=== PATIENT | female | born 1995 | race Caucasian/White ===

== ENCOUNTER 2016-09-26 04:32 | Emergency (ER) | payer OTHER ==
--- NOTE | 2016-09-26 06:02 | ED ORDER SUMMARY ---
..... Patient: RORY CACERES OrderSheet [facility] VisitID: [id number] [place] [address] 21y, F Registration Date/Time: 09/26/2016 ORDER SHEET Weight: 118.3 kg (stated) Allergies: Unknown GENERAL ORDERS: UA-Culture if indicated Urgent (05:04 09/26/2016 Juan Mario) (Ack 5:13 RKaruga) (5:23 CBradburn R.N.) Urine Urgent (05:04 09/26/2016 Juan Mario) (Ack 5:13 RKaruga) (5:23 CBradburn R.N.) MEDICATION ORDERS: Toradol IM 60 mg (NOW) (05:04 09/26/2016 Juan Mario) (Ack 5:25 CBradburn R.N.) (5:42 CBradburn R.N.) Zofran ODT PO 4 mg (NOW) (05:05 09/26/2016 Juan Mario) (Ack 5:25 CBradburn R.N.) (5:44 CBradburn R.N.) IV FLUIDS: ORDER SHEET NOTES: [Electronically signed by Mallory Hirsch R.N. (06:16 09/26/2016)] [Electronically signed by Bull Ramos Dr. (06:23 09/29/2016)] [Electronically locked/signed by Mallory Hirsch R.N. (06:16 09/26/2016)]
--- NOTE | 2016-09-26 06:02 | ED CLINICAL REPORT ---
Clinical Report - Physicians/Mid Levels [facility] [address] [address] 09/26/2016 4:34 Patient: RORY CACERES Time Seen: 0455; initial patient contact. Arrived- By private vehicle. Historian- patient. HISTORY OF PRESENT ILLNESS Chief Complaint: BACK PAIN. Onset- few months ago; worse over the past 2 days and it is still present. It was abrupt in onset and has been intermittent but is not gone now. It is described as being moderate in degree. The quality is noted to be sharp and aching. No bladder dysfunction, bowel dysfunction, sensory loss or motor loss. Additional history - no saddle anesthesia. No urinary retention. No history of IV drug use or fever. Patient notes an injury but denies injury to the head or neck. Mechanism of injury- she was lifting. Occurred at work. No other injury. Similar symptoms previously: Recent medical care: Not recently seen/assessed. REVIEW OF SYSTEMS No fever, difficulty with urination, hematuria, vaginal discharge or difficulty breathing. No chest pain, abdominal pain, nausea or vomiting. All systems otherwise negative, except as recorded above. PAST HISTORY See nurses notes. SOCIAL HISTORY Never smoker. No alcohol use or drug use. No recent travel. Is a local resident. works at a daycare center. ADDITIONAL NOTES The nursing notes have been reviewed. PHYSICAL EXAM Vital Signs: 09/26/2016 04:44 BP: 119/74. HR: 107. RR: 18. O2 saturation: 97%. Temp: 98.1 F. Pain level now: 7/10. Blood pressure normal. Oxygen saturation normal. Appearance: Alert. No acute distress. (nontoxic in appearance. Pleasant. Cooperative. Well-developed well-nourished). HEENT: Normal external inspection. Eyes: Pupils equal, round and reactive to light. ENT: Ears normal. Pharynx normal. Neck: Normal inspection. Neck nontender. Painless ROM. CVS: Heart sounds normal. Pulses normal. Respiratory: No respiratory distress. Breath sounds normal. Abdomen: No visible injury. Soft and nontender. Bowel sounds normal. Back: Normal inspection. No tenderness. No muscle spasm in the back, vertebral point tenderness or soft tissue tenderness. (no overlying skin changes. No crepitus. No bony abnormalities.). Skin: Skin warm and dry. Normal skin color. No rash. Normal skin turgor. Extremities: Extremities exhibit normal ROM. Extremities nontender. Neuro: Oriented X 3. Mood/affect normal. LABS, X-RAYS, AND EKG Laboratory Tests: UA-Culture if indicated: (JUAN DIEGO: 09/26/2016 05:19) ( [facility] 09/26/2016 05:40) Final results Test Result Flag Units (Reference) URINE COLOR YELLOW URINE APPEARANCE SL CLOUDY URINE GLUCOSE NEGATIVE (NEGATIVE) URINE BILIRUBIN NEGATIVE (NEGATIVE) URINE KETONE NEGATIVE (NEGATIVE) URINE SPECIFIC GRAVITY 1.020 (1.010-1.030) URINE PH 6.0 (5.0-8.0) URINE PROTEIN NEGATIVE (NEGATIVE) URINE UROBILINOGEN 0.2 EU/dL (0.2-1.0) URINE NITRITE NEGATIVE (NEGATIVE) URINE BLOOD 2+ (NEGATIVE) URINE LEUK ESTERASE NEGATIVE (NEGATIVE) URINE RBC 3-5 rbc/hpf (0-1) URINE WBC 3-5 wbc/hpf (0-1) URINE EPITHELIAL CELLS 5-10 EPI/hpf (0-5) URINE BACTERIA FEW (1+) (NONE SEEN) URINE COMMENT CULT NOT INDICATED 2+ MUCOUSURINE CULTURES ARE SET-UP BASED ON THE FOLLOWING CRITERIA:POSITIVE NITRITEPOSITIVE LEUKOCYTE ESTERASEGREATER THAN 10 WHITE BLOOD CELLSMODERATE (2+) OR GREATER BACTERIA Urine: (JUAN DIEGO: 09/26/2016 05:19) ( [facility] 09/26/2016 05:29) Final results Test Result Flag Units (Reference) URINE NEGATIVE . PROGRESS AND PROCEDURES Course of Care: The patient is a 21-year-old female presenting for nausea and lower back pain. patient with history of prior back injury in May. Patient likely with exacerbation of her prior back injury. Patient artery with radiographs of the back from her primary care doctor's office. Patient has tried physical therapy without success. No signs of cord compromise at this time. Patient without other red flags for back pain. Patient will be managed conservatively at this time with nonsteroidal anti-inflammatories. urine sample also taken for possible urinary tract etiology for the patient's discomfort. Patient is agreeable to the treatment plan. atient with improved symptoms while here in the emergency department. UA and tests are negative. Had discussion with patient in regards to her workup here in emergency department including Diagnosis, home care, follow-up, and return precautions. All questions have been answered. The patient expressed understanding of these instructions and was agreeable to them. At this time we'll all 4 conservative management with medications. Patient will be instructed to follow-up with her primary care DrLanette for furthermanagement and workup for her back pain if it continues. CLINICAL IMPRESSION Acute nontraumatic lumbar back pain. INSTRUCTIONS Off work today, tomorrow. Warnings: GENERAL WARNINGS: Return or contact your physician immediately if your condition worsens or changes unexpectedly, if not improving as expected, or if other problems arise. SPECIFICALLY, return if you develop weakness, numbness, tingling, pain or incontinence. Your Current Medications: CONTINUE TAKING THE FOLLOWING MEDICATIONS: Depo-Provera Intramuscular : every 3months. Flovent HFA Inhalation : 44 mcg PRN, prn. MetFORMIN HCl Oral : Tablet 1000 mg, 1 tablet daily. Singulair Oral : prn. Ventolin HFA Inhalation : 2 puffs, prn. Prescription Medications: Flexeril 10 mg: take 1 orally every 8 hours as needed for muscle spasm or pain. Dispense thirty (30). No refills. Substitution is permissible. Follow-up: Return to the emergency department as needed. Follow up with your doctor in three days. Reason for referral: recheck today's concerns. Summary of care provided to patient via paper. Screening today revealed the patient's blood pressure to be in the normal range. The patient should follow up with a primary care provider for blood pressure management. Understanding of the discharge instructions verbalized by patient. (Electronically signed by Bull Ramos Dr. 09/29/2016 6:23)
--- NOTE | 2016-09-26 06:02 | ED NURSING NOTES ---
Clinical Report - Nurses [facility] [address] [place] [address] 09/26/2016 4:34 Patient: RORY CACERES TRIAGE Triage time 04:44. Acuity: LEVEL 4. Chief Complaint: LEFT UPPER EXTREMITY PAIN. --04:50 Mallory Hirsch R.N. 04:44 09/26/16. BP: 119/74 taken on the left arm, while lying. HR: 107 (regular and tachycardic). RR: 18 (regular and unlabored). O2 saturation: 97% on room air. Temp: 98.1 F (oral). Pain level now: 10/09. --04:50 Mallory Hirsch R.N. Weight: 118.3 kg stated. Height/Length: 67 inches Per Patient. BMI: 40.9. --04:47 Mallory Hirsch R.N. Medications MetFORMIN HCl Oral (Tablet 1000 mg) 1 tablet, daily. --04:47 Mallory Hirsch R.N. Depo-Provera Intramuscular, every 3months. --04:47 Mallory Hirsch R.N. Ventolin HFA Inhalation 2 puffs, as needed. --04:48 Mallory Hirsch R.N. Flovent HFA Inhalation 44 mcg, PRN as needed. --04:48 Mallory Hirsch R.N. Singulair Oral, as needed. --04:49 Mallory Hirsch R.N. Allergies Unknown. --04:49 Mallory Hirsch R.N. History Arrived by private vehicle. Historian: patient. Unaccompanied. Primary physician ([facility]hsawn). Injury occurred. This occurred (may). ( injured lower back at work in May going to physical therapy, c/o more pain this morning, denies radiating pt reports pain is making her nauseated and vomit). PAST MEDICAL HX: Tetanus status: up-to-date. Immunizations: up-to-date. Last normal menstrual period- June 26, 2016. 0. Para 0. Uses depo injections. SOCIAL HX: Never smoker. No alcohol use or drug use. No infectious disease exposure. ABUSE ASSESSMENT: No report of abuse. SELF HARM ASSESSMENT: A self harm assessment was performed. The patient answered "no" to the question "Have you recently felt down, depressed, or hopeless?", "Have you noticed less interest or pleasure in doing things?", "Do you have thoughts of harming or killing yourself?", "Are you here because you tried to hurt yourself?", "Have you ever tried to hurt yourself before today?", "Have you recently had thoughts about harming or killing others?" and "Do you have any dangerous items in your possession?". FALL RISK ASSESSMENT: Fall risk assessment completed. No fall risk identified. NUTRITIONAL RISK ASSESSMENT: The nutritional risk assessment revealed no deficiencies. FUNCTIONAL ASSESSMENT: Functional assessment: no impairments noted. LEARNING NEEDS ASSESSMENT: The learning needs assessment revealed no barriers. SKIN INTEGRITY ASSESSMENT: Skin integrity risk assessment completed. No skin integrity risk identified. --04:50 Mallory Hirsch R.N. PROBLEMS: Diabetes Mellitus. Asthma. --04:49 Mallory Hirsch R.N. ADDITIONAL SURGERIES: no known surgeries. Interventions ID band on patient. To treatment room. --04:50 Mallory Hirsch R.N. PHYSICAL ASSESSMENT Ambulatory to room. (with steady gait). GENERAL / NEURO / PSYCH: Oriented X 4. Alert. Appears in no acute distress. EXTREMITIES: Extremities exhibit normal ROM and ROM. Extremity pulses are within normal limits. Neuro-vascular status intact to the extremity and extremity. No upper extremity edema. Skin is non-tender on the extremities. No lower extremity edema. Normal gait. SKIN: Skin intact. Skin is warm and dry. BACK: Back: tenderness located in the mid- lumbar area. --04:52 Mallory Hirsch R.N. NURSING PROGRESS NOTES Patient gowned. Two patient identifiers checked. Call light placed in reach. Side rails up x 1. Bed placed in lowest position. Brakes of bed on. Patient ready for evaluation- chart flagged. --04:52 Mallory Hirsch R.N. Patient ID band checked for patient name and birthdate: patient confirmed. Instructions provided to collect clean catch urine and patient verbalized understanding. Clean catch urine collected with return of yellow-colored clear urine; sample sent to lab for urinalysis and HCG. Specimen labeled in the presence of the patient. --05:25 Mallory Hirsch R.N. 05:40 09/26/2016 Toradol (Ketorolac Tromethamine) IM 60 mg given. Given in the right gluteus pam. Allergies verified and confirmed 5 rights. --05:42 Mallory Hirsch R.N. 05:41 09/26/2016 Zofran ODT (Ondansetron) PO Oral Disintegrating Tablets 4 mg given. Allergies verified and confirmed 5 rights. --05:44 Mallory Hirsch R.N. DISPOSITION / DISCHARGE Departure time: 610. Condition at departure: improved and stable. No learning barriers present. Discharge instructions provided and reviewed with the patient. Reviewed medication(s) side effects, precautions, dosing and course information. Prescription(s) given to the patient. Work note given (2 DAYS). Patient verbalized understanding. Written instructions provided in Luxembourgish. No referrals given to the patient. The patient was discharged home and unaccompanied at time of discharge. She left the Emergency Department ambulatory and via private vehicle. Patient driving. --06:15 Mallory Hirsch R.N. 06:14 09/26/16. BP: deferred. HR: deferred. RR: deferred. O2 saturation: deferred. Temp: deferred. Pain level now deferred. --06:15 Mallory Hirsch R.N. Locked/Released at 09/26/2016 6:16 by Mallory Hirsch R.N.
--- NOTE | 2016-09-26 06:02 | ED ORDER SUMMARY ---
..... Patient: RORY CACERES OrderSheet [facility] VisitID: [id number] [place] [address] 21y, F Registration Date/Time: 09/26/2016 ORDER SHEET Weight: 118.3 kg (stated) Allergies: Unknown GENERAL ORDERS: UA-Culture if indicated Urgent (05:04 09/26/2016 Juan Mario) (Ack 5:13 RKaruga) (5:23 CBradburn R.N.) Urine Urgent (05:04 09/26/2016 Juan Mario) (Ack 5:13 RKaruga) (5:23 CBradburn R.N.) MEDICATION ORDERS: Toradol IM 60 mg (NOW) (05:04 09/26/2016 Juan Mario) (Ack 5:25 CBradburn R.N.) (5:42 CBradburn R.N.) Zofran ODT PO 4 mg (NOW) (05:05 09/26/2016 Juan Mario) (Ack 5:25 CBradburn R.N.) (5:44 CBradburn R.N.) IV FLUIDS: ORDER SHEET NOTES: [Electronically signed by Mallory Hirsch R.N. (06:16 09/26/2016)] [Electronically signed by Bull Ramos Dr. (06:23 09/29/2016)] [Electronically locked/signed by Mallory Hirsch R.N. (06:16 09/26/2016)]
--- NOTE | 2016-09-29 06:24 | ED MED RECONCILIATION SUMMARY ---
Patient: RORY CACERES Medication Reconciliation Report [facility] VisitID: [id number] [address] [place] [address] 21y, F Registration Date/Time: 09/26/2016 Weight: 118.3 kg Height/Length: 67 in. BMI: 40.9 ALLERGIES: Unknown The patient's Home Medications are listed below: CONTINUE TAKING THE FOLLOWING MEDICATIONS: Depo-Provera Intramuscular, every 3months Flovent HFA Inhalation 44 mcg, PRN MetFORMIN HCl Oral (1000 mg) 1 tablet, daily Singulair Oral Ventolin HFA Inhalation 2 puffs The source(s) of the original Home Medication information: Not obtained. The following Medications were given to the patient in the Emergency Department: Toradol [IM] IM 60 mg, administered: 09/26/2016 5:40:00 AM Zofran ODT [PO] PO 4 mg, administered: 09/26/2016 5:41:00 AM The following Medications were prescribed to the patient: Flexeril 10 mg: take 1 orally every 8 hours as needed for muscle spasm or pain. Dispense thirty (30). No refills. Substitution is permissible. -- Bull Ramos Dr.
--- NOTE | 2016-09-29 06:24 | ED DISCHARGE INSTRUCTIONS ---
Patient: RORY CACERES General Instructions [facility] VisitID: [id number] [place] [address] 21y, F Registration Date/Time: 09/26/2016 Acute nontraumatic lumbar back pain. INSTRUCTIONS Off work today, tomorrow. Warnings: GENERAL WARNINGS: Return or contact your physician immediately if your condition worsens or changes unexpectedly, if not improving as expected, or if other problems arise. SPECIFICALLY, return if you develop weakness, numbness, tingling, pain or incontinence. Your Current Medications: CONTINUE TAKING THE FOLLOWING MEDICATIONS: Depo-Provera Intramuscular : every 3months. Flovent HFA Inhalation : 44 mcg PRN, prn. MetFORMIN HCl Oral : Tablet 1000 mg, 1 tablet daily. Singulair Oral : prn. Ventolin HFA Inhalation : 2 puffs, prn. Prescription Medications: Flexeril 10 mg: take 1 orally every 8 hours as needed for muscle spasm or pain. Dispense thirty (30). No refills. Substitution is permissible. Follow-up: Return to the emergency department as needed. Follow up with your doctor in three days. Reason for referral: recheck today's concerns. Summary of care provided to patient via paper. Screening today revealed the patient's blood pressure to be in the normal range. The patient should follow up with a primary care provider for blood pressure management. Understanding of the discharge instructions verbalized by patient. ADDITIONAL INFORMATION Back Pain [Acute Or Chronic] Back pain is usually caused by an injury to the muscles or ligaments of the spine. Sometimes the disks that separate each bone in the spine may bulge and cause pain by pressing on a nearby nerve. Back pain may also appear after a sudden twisting/bending force (such as in a car accident), after a simple awkward movement, or lifting something heavy with poor body positioning. In either case, muscle spasm is often present and adds to the pain. Acute back pain usually gets better in one to two weeks. Back pain related to disk disease, arthritis in the spinal joints or spinal stenosis (narrowing of the spinal canal) can become chronic and last for months or years. Unless you had a physical injury (for example, a car accident or fall) X-rays are usually not ordered for the initial evaluation of back pain. If pain continues and does not respond to medical treatment, x-rays and other tests may be performed at a later time. Home Care: You may need to stay in bed the first few days. But, as soon as possible, begin sitting or walking to avoid problems with prolonged bed rest (muscle weakness, worsening back stiffness and pain, blood clots in the legs). When in bed, try to find a position of comfort. A firm mattress is best. Try lying flat on your back with pillows under your knees. You can also try lying on your side with your knees bent up towards your chest and a pillow between your knees. Avoid prolonged sitting. This puts more stress on the lower back than standing or walking. During the first two days after injury, apply an ICE PACK to the painful area for 20 minutes every 2-4 hours. This will reduce swelling and pain. HEAT (hot shower, hot bath or heating pad) works well for muscle spasm. You can start with ice, then switch to heat after two days. Some patients feel best alternating ice and heat treatments. Use the one method that feels the best to you. You may use acetaminophen (Tylenol) or ibuprofen (Motrin, Advil) to control pain, unless another pain medicine was prescribed. [NOTE: If you have chronic liver or kidney disease or ever had a stomach ulcer or GI bleeding, talk with your doctor before using these medicines.] Be aware of safe lifting methods and do not lift anything over 15 pounds until all the pain is gone. Follow Up with your doctor or this facility if your symptoms do not start to improve after one week. Physical therapy may be needed. [NOTE: If X-rays were taken, they will be reviewed by a radiologist. You will be notified of any new findings that may affect your care.] Get Prompt Medical Attention if any of the following occur: Pain becomes worse or spreads to your legs Weakness or numbness in one or both legs Loss of bowel or bladder control Numbness in the groin or genital area Cyclobenzaprine Hydrochloride Oral tablet What is this medicine? CYCLOBENZAPRINE (georgina posey) is a muscle relaxer. It is used to treat muscle pain, spasms, and stiffness. How should I use this medicine? Take this medicine by mouth with a glass of water. Follow the directions on the prescription label. If this medicine upsets your stomach, take it with food or milk. Take your medicine at regular intervals. Do not take it more often than directed. Talk to your boat detailer regarding the use of this medicine in children. Special care may be needed. What side effects may I notice from receiving this medicine? Side effects that you should report to your doctor or health animal care service worker as soon as possible: allergic reactions like skin rash, itching or hives, swelling of the face, lips, or tongue chest pain fast heartbeat hallucinations seizures vomiting Side effects that usually do not require medical attention (report to your doctor or health animal care service worker if they continue or are bothersome): headache What may interact with this medicine? Do not take this medicine with any of the following medications: cisapride droperidol flecainide grepafloxacin halofantrine levomethadyl MAOIs like Carbex, Eldepryl, Marplan, Nardil, and Parnate nilotinib pimozide probucol sertindole This medicine may also interact with the following medications: abarelix alcohol contrast dyes dolasetron guanethidine medicines for cancer medicines for depression, anxiety, or psychotic disturbances medicines to treat an irregular heartbeat medicines used for sleep or numbness during surgery or procedure methadone octreotide ondansetron palonosetron phenothiazines like chlorpromazine, mesoridazine, prochlorperazine, thioridazine some medicines for infection like alfuzosin, chloroquine, clarithromycin, levofloxacin, mefloquine, pentamidine, troleandomycin tramadol vardenafil What if I miss a dose? If you miss a dose, take it as soon as you can. If it is almost time for your next dose, take only that dose. Do not take double or extra doses. Where should I keep my medicine? Keep out of the reach of children. Store at room temperature between 15 and 30 degrees C (59 and 86 degrees F). Keep container tightly closed. Throw away any unused medicine after the expiration date. What should I tell my health care provider before I take this medicine? They need to know if you have any of these conditions: heart disease, irregular heartbeat, or previous heart attack liver disease thyroid problem an unusual or allergic reaction to cyclobenzaprine, tricyclic antidepressants, lactose, other medicines, foods, dyes, or preservatives or trying to get breast-feeding What should I watch for while using this medicine? Check with your doctor or health animal care service worker if your condition does not improve within 1 to 3 weeks. You may get drowsy or dizzy when you first start taking the medicine or change doses. Do not drive, use machinery, or do anything that may be dangerous until you know how the medicine affects you. Stand or sit up slowly. Your mouth may get dry. Drinking water, chewing sugarless gum, or sucking on hard candy may help. You have been given the following additional information: Back Pain (Acute Or Chronic) Cyclobenzaprine Hydrochloride Oral tablet Off work today, tomorrow. (Electronically signed by Bull Ramos Dr. 09/29/2016 6:23)
--- NOTE | 2016-09-29 06:24 | ED MAR SUMMARY ---
..... Medication Administration Record [facility] [address] [place] [address] Patient: RORY CACERES Visit ID: [id number] 21y, F Weight: 118.3 kg Height/Length: 67 in BMI: 40.9 ALLERGIES: Unknown Given 05:40 09/26/2016 Mallory Hirsch RRadha Medication Administered: TORADOL [IM] (KETOROLAC TROMETHAMINE), Dose: 60 mg IM. Medication Ordered: Toradol IM 60 mg (NOW). Given 05:41 09/26/2016 Mallory Hirsch, RLanetteN. Medication Administered: ZOFRAN ODT [PO] (ONDANSETRON), Dose: 4 mg Oral Disintegrating Tablets PO. Medication Ordered: Zofran ODT PO 4 mg (NOW).
--- NOTE | 2016-09-29 06:24 | ED MED RECONCILIATION SUMMARY ---
Patient: RORY CACERES Medication Reconciliation Report [facility] VisitID: [id number] [address] [place] [address] 21y, F Registration Date/Time: 09/26/2016 Weight: 118.3 kg Height/Length: 67 in. BMI: 40.9 ALLERGIES: Unknown The patient's Home Medications are listed below: CONTINUE TAKING THE FOLLOWING MEDICATIONS: Depo-Provera Intramuscular, every 3months Flovent HFA Inhalation 44 mcg, PRN MetFORMIN HCl Oral (1000 mg) 1 tablet, daily Singulair Oral Ventolin HFA Inhalation 2 puffs The source(s) of the original Home Medication information: Not obtained. The following Medications were given to the patient in the Emergency Department: Toradol [IM] IM 60 mg, administered: 09/26/2016 5:40:00 AM Zofran ODT [PO] PO 4 mg, administered: 09/26/2016 5:41:00 AM The following Medications were prescribed to the patient: Flexeril 10 mg: take 1 orally every 8 hours as needed for muscle spasm or pain. Dispense thirty (30). No refills. Substitution is permissible. -- Bull Ramos Dr.
--- NOTE | 2016-09-29 06:24 | ED MAR SUMMARY ---
..... Medication Administration Record [facility] [address] ([place]) [place] [address] Patient: RORY CACERES Visit ID: [id number] 21y, F Weight: 118.3 kg Height/Length: 67 in BMI: 40.9 ALLERGIES: Unknown Given 05:40 09/26/2016 Mallory Hirsch RRadha Medication Administered: TORADOL [IM] (KETOROLAC TROMETHAMINE), Dose: 60 mg IM. Medication Ordered: Toradol IM 60 mg (NOW). Given 05:41 09/26/2016 Mallory Hirsch, RLanetteN. Medication Administered: ZOFRAN ODT [PO] (ONDANSETRON), Dose: 4 mg Oral Disintegrating Tablets PO. Medication Ordered: Zofran ODT PO 4 mg (NOW).
== END 2016-09-26 06:11 | disposition home or self-care (01) ==
LOC: ED SRH 04:32
DX: M54.5 Low back pain (principal); X50.0XXA Overexertion from strenuous movement or load, initial encounter; Y99.0 Civilian activity done for income or pay; E11.9 Type 2 diabetes mellitus without complications; Z79.84 Long term (current) use of oral hypoglycemic drugs; Z79.899 Other long term (current) drug therapy
CPT/HCPCS: 90004; 93070